=== PATIENT | female | born 1990 | race Caucasian/White ===

== ENCOUNTER 2021-06-12 12:26 | Emergency (ER) | payer OTHER, MEDICAID, SELFPAY ==
[2021-06-12 13:02] VITALS: BP 127/94; PULSE 66; RESP 18; TEMP 36.2; O2SAT 99; BMI 36.9
[2021-06-12 14:11] LABS: Appearance Urine UA SL CLOUDY; Bilirubin Urine UA NEGATIVE (NEGATIVE); Color Urine UA YELLOW; Glucose Urine UA NEGATIVE (Negative); Ketones Urine UA TRACE (NEGATIVE); Leukocyte Esterase Urine UA NEGATIVE (NEGATIVE); Nitrite Urine UA NEGATIVE (Negative); Occult Blood Urine UA 3+ (Negative); Protein Urine UA NEGATIVE (Negative); Specific Gravity Urine UA 1.025 (1.000-1.035); Urobilinogen Urine UA 0.2 E.U./dL (0.2)
--- NOTE | 2021-06-12 14:35 | PC.NURSE ---
Patient reports the use of a Diva Cup that she only empties every 24 hours. Reports that she removed it this morning and stepped in a clot that she estimated was the size of both her first that was black and only turned a bit red when squished. Reports only other symptoms as a muscle cramp in right leg and fatigue.
[2021-06-12 14:43] LABS: Bacteria Urine None Seen; Culture Indicated Urine Cult Not Indicated; RBC Urine 30-100/HPF (0-5/HPF); Squamous Epithelial Cell Urine 5-10 /HPF (0-5/HPF); WBC Urine 0-1/HPF (0-5/HPF)
--- NOTE | 2021-06-12 14:43 | ED_ITS ---
HPI - General Chief complaint: Vaginal Bleeding Stated complaint: Passed clot in shower Time Seen by Provider: 06/12/21 12:29 Source: patient Mode of arrival: EMS Limitations: no limitations History of Present Illness HPI Narrative: 30-year-old female nonsmoker with noncontributory medical history presents by EMS for evaluation of the passage of large clot in the shower today. She is concerned she might be having a miscarriage as she has been trying to become though she has not taken any tests that are positive. She denies other symptoms such as dizziness, weakness or lightheadedness. She has no fever or chills. She denies any chest pain or shortness of breath. She has no nausea, vomiting or diarrhea. She states she uses a DIVA cup and it had been in place for longer than normal. Review of Systems Review of Systems Narrative: GENERAL: Denies chills, fatigue, malaise, fever, sweats. HEENT: Denies sinus pain, ear pain, sore throat, difficulty swallowing, dizziness. RESPIRATORY: Denies dyspnea, cough, wheezing, hemoptysis, sputum. CARDIOVASCULAR: Denies chest pain, palpitations, orthopnea, edema, GASTROINTESTINAL: Denies nausea, vomiting, abdominal pain, diarrhea, constipation, melena. : See HPI MUSCULOSKELETAL: denies weakness, joint pain, or bony pain SKIN: Denies rash, skin lesions, or other NEUROLOGIC: Denies weakness, headache, numbness, change in speech, confusion, seizures, incoordination. PSYCHIATRIC: No concerning psychosocial issues. 12 point review of systems is negative except for those stated above Exam Narrative Exam Narrative: GENERAL: [30] year old patient appears stated age. Well-developed patient, in mild distress. HEAD: Atraumatic. Normocephalic. EYES: Pupils equal round and reactive. Extraocular motions intact. No scleral icterus. No injection or drainage. ENT: Nose without bleeding, purulent drainage. Throat without erythema, tonsillar hypertrophy or exudate. Airway patent. NECK: Trachea midline. Non tender CARDIOVASCULAR: Regular rate and rhythm without murmurs, gallops, or rubs. RESPIRATORY: Clear to auscultation. Breath sounds equal bilaterally. No wheezes, rales, or rhonchi. GASTROINTESTINAL: Abdomen soft, non-tender, nondistended. EXTREMITIES: No edema or joint tenderness. BACK: Nontender without deformity or crepitance. No flank tenderness. NEURO: AOx3. SKIN: No rash or erythema of visible areas Initial Vital Signs Initial Vital Signs: Vital Signs Temperature 97.1 F L 06/12/21 13:02 Pulse Rate 66 06/12/21 13:02 Respiratory Rate 18 06/12/21 13:02 Blood Pressure 127/94 H 06/12/21 13:02 Pulse Oximetry 99 06/12/21 13:02 Course Course Course Narrative: Call to restroom, very small amount of blood noted Orders Ordered: ED Orders 06/12/21 13:10 Urinalysis and Microscopic Stat Vital Signs Vital signs: Vital Signs - 8 hr 06/12/21 13:02 Temperature 97.1 F L Pulse Rate 66 Respiratory Rate 18 Blood Pressure 127/94 H Pulse Oximetry 99 MDM - OB/Uterine Contractions Lab Data Labs: Lab Results 06/12/21 Range/Units 13:10 Urine Color Yellow Urine Appearance Sl cloudy Urine pH 5.0 (4.5-8.0) Ur Specific [place] 1.025 (1.000-1.035) Urine Protein Negative (Negative) Urine Glucose (UA) Negative (Negative) g/dL Urine Ketones Trace H (NEGATIVE) Urine Occult Blood 3+ H (Negative) Urine Nitrate Negative (Negative) Urine Bilirubin Negative (NEGATIVE) Urine Urobilinogen 0.2 (0.2) E.U./dL Ur Leukocyte Esterase Negative (NEGATIVE) Urine RBC 30-100/hpf H (0-5/HPF) Urine WBC 0-1/hpf (0-5/HPF) Ur Squamous Epith Cells 5-10 /hpf H (0-5/HPF) Urine Bacteria None seen (None) Ur Culture Indicated? Cult not indicated Point of Care Testing Test Results Negative Urine Dip Bedside Urine Glucose Negative Bedside Urine Bilirubin - Negative Bedside Urine Ketone - Negative Urine Specific [place] 1.030 Bedside Urine Occult Blood +++ Bedside Urine pH 6.0 Bedside Urine Protein +/- 15 Bedside Urine Urobilinogen - Negative Bedside Urine Nitrite - Negative Bedside Urine Leukocytes - Negative Esterase MDM Narrative Medical decision making narrative: Patient passed a moderate size clot earlier in the day. She is currently on her menses and left her developed copy in longer than normal. Her is negative, she has very minimal ongoing bleeding and denies systemic symptoms such as pain, dizziness weakness or lightheadedness. She is given return precautions and questions have been answered to her apparent satisfaction Discharge Plan Departure Patient Disposition: Home Clinical Impression: Vaginal bleeding Instructions: DI for Vaginal Bleeding Activity Restrictions/Additional Instructions: *You have been diagnosed with [vaginal bleeding] *What to do: *Please continue to take your regular medications as directed. [ ] New medication prescriptions sent to your pharmacy: [ ] [ ] New medication written as a paper prescription [ x] No new medications given *Please follow up with your primary care provider in 2-3 days, call for an appointment. Let them know you were seen in the Emergency Department and that we ask that you be seen in follow up. We will electronically transmit a record of today's note if your PCP is in our system *If you do not have a primary care provider please contact the [facility] Resource line at [phone]. They will ask some questions about your medical history and help get you set up with a doctor in the community. *Return to Emergency Department if you should have any new, worsening or concerning symptoms, such as saturating more than 1 pad per hour for multiple hours, fever or other bothersome symptoms Referrals: Lucia Cho ARNP [Primary Care Provider] -
== END 2021-06-12 15:03 | disposition home or self-care (01) ==
PROVIDERS: Emergency Provider Emergency Medicine; PCP Registered Nurse
DX: N93.9 Abnormal uterine and vaginal bleeding, unspecified (principal)
CPT/HCPCS: 81001; 81003; 81025; 99282

== ENCOUNTER 2021-10-25 12:11 | Emergency (ER) | payer OTHER, MEDICAID, SELFPAY ==
[2021-10-25 12:18] VITALS: BP 162/96; PULSE 92; RESP 22; TEMP 36.7; O2SAT 98; BMI 73.2
--- NOTE | 2021-10-25 12:46 | ED_ITS ---
HPI - General Adult General Chief complaint: Dental/Oral Stated complaint: Left Sided Facial and Jaw Pain Time Seen by Provider: 10/25/21 12:40 Source: patient Mode of arrival: Ambulatory Limitations: no limitations History of Present Illness HPI narrative: Patient is a 31-year-old female with known poor dentition who is seen a dentist in the past and has had multiple tooth extractions who is here for evaluation of several days of left upper jaw discomfort and concern for another infection. She is been taking Tylenol and ibuprofen without improvement no problems breathing. No problems swallowing. Related Data Previous Rx's Medication Instructions Recorded penicillin V potassium 500 mg 500 mg PO QID 7 days #28 tabs 10/25/21 tablet Allergies Allergy/AdvReac Type Severity Reaction Status Date / Time No Known Drug Allergies Allergy Verified 10/25/21 12:21 Review of Systems Constitutional Constitutional: Reports system reviewed and no additional complaints, except as documented ENT Ears, Nose, Mouth, and Throat: Reports system reviewed and no additional complaints, except as documented Respiratory Respiratory: Reports system reviewed and no additional complaints, except as documented Integumentary/Breasts Skin/Breast: Reports system reviewed and no additional complaints, except as documented Hematologic/Lymphatic On Anticoagulants: No Patient History Social History Smoking Status: Never smoker Smoking Status: Never smoker Substance Use Type: does not use Exam Initial Vital Signs Initial Vital Signs: Vital Signs Temperature 98.1 F 10/25/21 12:18 Pulse Rate 92 H 10/25/21 12:18 Respiratory Rate 22 10/25/21 12:18 Blood Pressure 162/96 H 10/25/21 12:18 Pulse Oximetry 98 10/25/21 12:18 Oxygen Delivery Method 10/25/21 12:18 Const General: cooperative and comfortable HENMT Head: normal to inspection and normocephalic Ears: TM's normal bilaterally and EAC's normal Mouth: oral mucosae normal Teeth and gingiva: caries and poor dentition Throat: posterior oropharynx normal Resp Effort & Inspection: normal respiratory effort Cardio Rate: regular rate Skin General: no rashes or lesions noted Neuro General: patient alert, patient awake and moves all extremities Extrem General: normal to inspection and capillary refill normal Course Vital Signs Vital signs: Vital Signs - 8 hr 10/25/21 12:18 Temperature 98.1 F Pulse Rate 92 H Respiratory Rate 22 Blood Pressure 162/96 H Pulse Oximetry 98 Oxygen Delivery Method Room Air Medical Decision Making MDM Narrative Medical decision making narrative: Patient is very tearful. She is very poor dentition that is going to need intervention by a dentist. There is no drainable abscess seen here in the ER. No problems breathing. Problems swallowing. Will treat with antibiotics. We discussed return precautions and follow-up instructions. She expressed under standing and agreement. Discharge Plan Departure Patient Disposition: Home Clinical Impression: Dental caries Instructions: DI for Dental Pain Activity Restrictions/Additional Instructions: I do recommend that you start taking the antibiotics as directed. You are want to need follow-up with a dentist for definitive treatment. Return to the emergency department for any new symptoms. Prescriptions: New penicillin V potassium 500 mg tablet 500 mg PO QID 7 Days Qty: 28 0RF Referrals: Lucia Cho ARNP [Primary Care Provider] -
[2021-10-25] MEDS: HYDROCODONE/ACET 5/325 TABLET 1 TAB PO (13:06)
== END 2021-10-25 13:07 | disposition home or self-care (01) ==
PROVIDERS: Emergency Provider Emergency Medicine; PCP Registered Nurse
DX: K02.9 Dental caries, unspecified (principal)
CPT/HCPCS: 99283

== ENCOUNTER 2022-05-13 11:53 | Emergency (ER) | payer OTHER, MEDICAID, SELFPAY ==
[2022-05-13 12:02] VITALS: BP 125/78; PULSE 91; RESP 20; TEMP 36.8; O2SAT 99; BMI 36.8
--- NOTE | 2022-05-13 12:16 | ED_ITS ---
HPI - URI/Sore Throat <Raj Price PA-C - Last Filed: 05/13/22 17:17> General Chief Complaint: Upper Respiratory Symptoms Stated Complaint: sore throat T-7/fatiuged/tired Time Seen by Provider: 05/13/22 12:05 Source: patient Mode of arrival: Ambulatory History of Present Illness HPI Narrative: This is a 31-year-old female presents to the emergency department for a sore throat for the last 7 days. She also reports increased fatigue today. She states that she had a tactile fever on the initial day 7 days ago but has not noticed any since then. She denies any chest pain, shortness of breath, abdominal pain, vaginal or genitourinary symptoms. She states she is ?around children a lot?. Related Data Allergies Allergy/AdvReac Type Severity Reaction Status Date / Time No Known Drug Allergies Allergy Verified 05/13/22 12:04 Review of Systems <Raj Price PA-C - Last Filed: 05/13/22 17:17> Review of Systems Narrative: GENERAL: Reports fatigue, fevers Denies chills, , malaise, , sweats. HEENT: Reports sore throat RESPIRATORY: Denies dyspnea, cough, wheezing, hemoptysis, sputum. CARDIOVASCULAR: Denies chest pain, palpitations, orthopnea, edema, GASTROINTESTINAL: Denies nausea, vomiting, abdominal pain, diarrhea, con stipation, melena. : Denies dysuria, frequency, incontinence, hematuria, urinary retention. MUSCULOSKELETAL: denies weakness, joint pain, or bony pain SKIN: Denies rash, skin lesions, or other NEUROLOGIC: Denies weakness, headache, numbness, change in speech, confusion, seizures, incoordination. PSYCHIATRIC: No concerning psychosocial issues. 12 point review of systems is negative except for those stated above Patient History <VIANEY Beyer Last Filed: 05/13/22 17:17> Social History Smoking Status: Never smoker Smoking Status: Never smoker Substance Use Type: does not use Exam <VIANEY Beyer Last Filed: 05/13/22 17:17> Narrative Exam Narrative: GENERAL: Well-developed patient, in mild distress. HEAD: Atraumatic. Normocephalic. EYES: Pupils equal round and reactive. Extraocular motions intact. No scleral icterus. No injection or drainage. ENT: Nose without bleeding, purulent drainage. Throat without erythema, tonsillar hypertrophy or exudate. Airway patent. Uvula midline, no tonsillar edema NECK: Trachea midline. Non tender CARDIOVASCULAR: Regular rate and rhythm without murmurs, gallops, or rubs. RESPIRATORY: Clear to auscultation. Breath sounds equal bilaterally. No wheezes, rales, or rhonchi. GASTROINTESTINAL: Abdomen soft, non-tender, nondistended. EXTREMITIES: No edema or joint tenderness. BACK: Nontender without deformity or crepitance. No flank tenderness. NEURO: AOx3. SKIN: No rash or erythema of visible areas Initial Vital Signs Initial Vital Signs: Vital Signs Temperature 98.3 F 05/13/22 12:02 Pulse Rate 91 H 05/13/22 12:02 Respiratory Rate 20 05/13/22 12:02 Blood Pressure 125/78 05/13/22 12:02 Pulse Oximetry 99 05/13/22 12:02 Oxygen Delivery Method Room Air 05/13/22 12:02 <Candy Cuenca DO - Last Filed: 05/14/22 09:29> Initial Vital Signs Initial Vital Signs: Vital Signs Temperature 98.3 F 05/13/22 12:02 Pulse Rate 91 H 05/13/22 12:02 Respiratory Rate 20 05/13/22 12:02 Blood Pressure 125/78 05/13/22 12:02 Pulse Oximetry 99 05/13/22 12:02 Oxygen Delivery Method Room Air 05/13/22 12:02 Course <Raj Price PA-C - Last Filed: 05/13/22 17:17> Orders Ordered: ED Orders 05/13/22 11:59 Respiratory Panel (Film Array) Stat Strep Grp A by PCR Rapid Stat Vital Signs Vital signs: Vital Signs - 8 hr 05/13/22 12:02 Temperature 98.3 F Pulse Rate 91 H Respiratory Rate 20 Blood Pressure 125/78 Pulse Oximetry 99 Oxygen Delivery Method Room Air <Candy Cuenca DO - Last Filed: 05/14/22 09:29> Orders Ordered: ED Orders 05/13/22 11:59 Respiratory Panel (Film Array) Stat Strep Grp A by PCR Rapid Stat Vital Signs Vital signs: Vital Signs - 8 hr 05/13/22 12:02 Temperature 98.3 F Pulse Rate 91 H Respiratory Rate 20 Blood Pressure 125/78 Pulse Oximetry 99 Oxygen Delivery Method Room Air MDM - URI/Sore Throat <Raj Price PA-C - Last Filed: 05/13/22 17:17> Lab Data Labs: Lab Results 05/13/22 05/13/22 Range/Units 11:59 11:59 Chlamy pneumoniae PCR Not detected (Not Detect) Adenovirus (PCR) Not detected (Not Detect) B. pertussis DNA (PCR) Not detected (Not Detecte) B.parapertussis DNA PCR Not detected (Not Detecte) Coronavirus OC43 (PCR) Not detected (Not Detect) Coronavirus HKU1 (PCR) Not detected (Not Detect) Coronavirus 229E (PCR) Not detected (Not Detect) SARS-CoV-2 (PCR) Detected H (Not Detecte) Coronavirus NL63 (PCR) Not detected (Not Detect) Human Metapneumovir PCR Not detected (Not Detect) Influenza Type A (PCR) Not detected (Not Detect) Influenza Type B (PCR) Not detected (Not Detect) M. pneumoniae (PCR) Not detected (Not Detect) Parainfluenza 1 (PCR) Not detected (Not Detect) Parainfluenza 2 (PCR) Not detected (Not Detect) Parainfluenza 3 (PCR) Not detected (Not Detect) Parainfluenza 4 (PCR) Not detected (Not Detect) RSV (PCR) Not detected (Not Detect) Entero/Rhino (PCR) Not detected (Not Detect) Group A Strep (PCR) Negative (Negative) MDM Narrative Medical decision making narrative: MDM * differential diagnosis includes but not limited to viral pharyngitis, bacterial pharyngitis, peritonsillar abscess, viral URI * Prior records reviewed: Patient has not been here for similar complaints in the past * My lab interpretation: Testing came back negative for strep throat but did come back positive for COVID * My imgaing interpretation: None obtained * Clinical Decision Rules/Scores evaluated: No * Independent discussions with: None ED Course: This is a otherwise healthy 31-year-old female presents emergency department due to URI symptoms for approximately the last week. Rapid strep was ordered which was negative but viral panel was ordered which came back positive for COVID-19. Recommended symptomatic and conservative measures as this should be self-limiting. Recommended isolation precautions. Shared Decision Making: Discussed plan with patient who is comfortable with plan Social Considerations: None Disposition: Discharged to home <Candy Cuenca DO - Last Filed: 05/14/22 09:29> Lab Data Labs: Lab Results 05/13/22 05/13/22 Range/Units 11:59 11:59 Chlamy pneumoniae PCR Not detected (Not Detect) Adenovirus (PCR) Not detected (Not Detect) B. pertussis DNA (PCR) Not detected (Not Detecte) B.parapertussis DNA PCR Not detected (Not Detecte) Coronavirus OC43 (PCR) Not detected (Not Detect) Coronavirus HKU1 (PCR) Not detected (Not Detect) Coronavirus 229E (PCR) Not detected (Not Detect) SARS-CoV-2 (PCR) Detected H (Not Detecte) Coronavirus NL63 (PCR) Not detected (Not Detect) Human Metapneumovir PCR Not detected (Not Detect) Influenza Type A (PCR) Not detected (Not Detect) Influenza Type B (PCR) Not detected (Not Detect) M. pneumoniae (PCR) Not detected (Not Detect) Parainfluenza 1 (PCR) Not detected (Not Detect) Parainfluenza 2 (PCR) Not detected (Not Detect) Parainfluenza 3 (PCR) Not detected (Not Detect) Parainfluenza 4 (PCR) Not detected (Not Detect) RSV (PCR) Not detected (Not Detect) Entero/Rhino (PCR) Not detected (Not Detect) Group A Strep (PCR) Negative (Negative) Discharge Plan Departure Patient Disposition: Home Clinical Impression: COVID-19 Instructions: DI for COVID-19 (Suspected or Confirmed ), COVID-19 Activity Restrictions/Additional Instructions: Thank you for coming to the [facility] Emergency Department today. As discussed your test came back negative for strep throat but it did come back positive for COVID. Please read the attached information for wheezing and treat your symptoms and isolation precautions. As we discussed I recommend you avoid the Easter dinner you have planned for this Tuesday. Please get plenty of rest, DayQuil and NyQuil help with your symptoms and get plenty of fluids. I hope you feel better soon. Referrals: Lucia Cho ARNP [Primary Care Provider] - Stand Alone Forms: Patient Portal/API <Candy Cuenca DO - Last Filed: 05/14/22 09:29> Cosign ED Attending Cosignature Attestation: I was immediately available in the department for consultation.
[2022-05-13 12:46] LABS: Strep Grp A by PCR Rapid Negative (Negative)
[2022-05-13 13:52] LABS: B. parapertussis Not Detected (Not Detecte); Bordetella pertussis Not Detected (Not Detecte); Chlamydophila pneumoniae Not Detected (Not Detect); Coronavirus 229E Not Detected (Not Detect); Coronavirus HKU1 Not Detected (Not Detect); Coronavirus NL 63 Not Detected (Not Detect); Coronavirus OC43 Not Detected (Not Detect); Human Metapneumovirus Not Detected (Not Detect); Human Rhinovirus/Enterovirus Not Detected (Not Detect); Influenza A Not Detected (Not Detect); Influenza B Not Detected (Not Detect); Mycoplasma pneumoniae Not Detected (Not Detect); Parainfluenza Virus 1 Not Detected (Not Detect); Parainfluenza Virus 2 Not Detected (Not Detect); Parainfluenza Virus 3 Not Detected (Not Detect); Parainfluenza Virus 4 Not Detected (Not Detect); Respiratory Syncytial Virus Not Detected (Not Detect); SARS- CoV-2 Detected (Not Detecte)
[2022-05-13 13:54] LABS: Adenovirus Not Detected (Not Detect)
== END 2022-05-13 14:05 | disposition home or self-care (01) ==
PROVIDERS: Emergency Medicine; Emergency Provider Physician Assistant Medical; PCP Registered Nurse
DX: U07.1 COVID-19 (principal)
CPT/HCPCS: 87633; 87651; 99281; 99282